=== PATIENT | female | born 2000 | race Caucasian/White ===

== ENCOUNTER 2022-07-09 08:11 | Emergency (ER) | payer BC, SELFPAY ==
[2022-07-09 08:29] VITALS: BP 140/90; PULSE 120; TEMP 36.8; O2SAT 97; BMI 35.9
--- NOTE | 2022-07-09 09:35 | ED.BACK ---
HPI - Back Pain/Injury General Chief Complaint: Back Injury/Pain Stated Complaint: Low back pain Time Seen by Provider: 07/09/22 08:44 History of Present Illness HPI Narrative: This 21-year-old female comes in with low back pain radiating down her whole left leg. She states that she had back pain like this about 3 years ago that resolved after about 6 months. Symptoms recurred again about a year ago during which time over this past year she was seeing a chiropractor. She had x-rays done a couple months ago and was given a steroid course and a muscle relaxant. Her symptoms improved while she was on these medicines. She states that her pain worsened significantly since last night. She states that she needed help getting her clothes on today. She does not report any saddle anesthesia or altered bowel or bladder function. Related Data Home Medications Medication Instructions Recorded Confirmed cyclobenzaprine 10 mg tablet mg 07/09/22 Previous Rx's Medication Instructions Recorded cyclobenzaprine 10 mg tablet 10 mg PO TID #15 tabs 07/09/22 hydrocodone 5 mg-acetaminophen 325 1 tab PO Q4-6H PRN pain #20 tabs 07/09/22 mg tablet ketorolac 10 mg tablet 10 mg PO Q8H 5 days #15 tabs 07/09/22 methylprednisolone 4 mg tablets in See Rx Instructions PO .COMPLEX 07/09/22 a dose pack (Medrol (Shane)) #21 ea Allergies Allergy/AdvReac Type Severity Reaction Status Date / Time No Known Drug Allergies Allergy Verified 07/09/22 08:31 Review of Systems Status of ROS: Reports: 10 or more systems reviewed and unremarkable except as noted in History and below Narrative: Constitutional: No fevers, no weight gain or loss. Eyes: No discharge. No vision changes. HENT: No congestion, no sore throat, no ear pain. Cardiovascular: No chest pain, no palpitations. Respiratory: No shortness of breath, no wheezes, no cough. Gastrointestinal: No abdominal pain, no vomiting, no diarrhea. Genitourinary: No dysuria, no hematuria. Musculoskeletal: Low back pain radiating down the left leg. Skin: No rashes, no pruritis. Neurological: No dizziness, weakness, sensory change, speech change. Endo/Heme/Allergies: No bruising or bleeding. No polydipsia. Pysch: no suicidality, no anxiety, no insomnia. All other systems reviewed and are negative. Exam Narrative: Exam Narrative: Constitutional: Well-developed, well-nourished, no acute distress. HEENT: Normocephalic, atraumatic. Neck: Normal range of motion. Nontender. Supple. Heart: Intact distal pulses. Lungs: No chest discomfort. No wheezes, rhonchi, or rales. Abdomen: Nontender. Back: Normal range of motion. Extremities: Low back pain radiating down the left leg. I did not attempt to do a straight leg raise as this would worsen her symptoms most likely. Skin: Intact. No rash. Warm. No erythema or pallor. Neurologic: No altered sensation. No weakness. Alert and oriented. Psychiatric: No suicidality. No anxiety or depression. No insomnia. Nursing notes and vitals signs are reviewed. Const: Vital Signs, click to edit/add: Vital Signs - 24 hr 07/09/22 08:29 Temperature 98.3 F Pulse Rate [Pulse Oximeter] 120 H Blood Pressure [Ri ght Upper Arm] 140/90 H Pulse Oximetry 97 Oxygen Delivery Me thod Room Air Course Vital Signs Vital signs: Initial Vital Signs Temperature 98.3 F 07/09/22 08:29 Temperature Source Temporal Artery Scan 07/09/22 08:29 Pulse Rate 120 H 07/09/22 08:29 Blood Pressure 140/90 H 07/09/22 08:29 Blood Pressure Mean 106 07/09/22 08:29 Blood Pressure Position Sitting 07/09/22 08:29 Pulse Oximetry 97 07/09/22 08:29 Oxygen Delivery Method 07/09/22 08:29 Vital Signs Temperature 98.3 F 07/09/22 08:29 Pulse Rate 120 H 07/09/22 08:29 Blood Pressure 140/90 H 07/09/22 08:29 Pulse Oximetry 97 07/09/22 08:29 Oxygen Delivery Method 07/09/22 08:29 Temperature 98.3 F 07/09/22 08:29 Pulse Rate 120 H 07/09/22 08:29 Blood Pressure 140/90 H 07/09/22 08:29 Pulse Oximetry 97 07/09/22 08:29 Oxygen Delivery Method 07/09/22 08:29 MDM - Back Pain/Injury MDM Narrative Medical decision making narrative: This patient comes in with worsening low back pain that is likely due to a lumbar radiculopathy. She did not have any recent injury event or strenuous activity that would mandate imaging at this time. I advised her to follow-up with the spine clinic where she may need an MRI and could be a candidate for some therapeutic injections. For now she received prescriptions for Medrol Dosepak, Toradol, [place], and Flexeril. She understands that we will not refill the narcotic out of the emergency department. Discharge Plan Discharge Clinical Impression: Lumbar radiculopathy Patient Disposition: Home w/ Parent or Adult Condition: Unchanged Additional Instructions: Take medication as needed and indicated. Follow up with primary physician and consider a clinic appointment with the spine clinic. Call [phone] for appointment. Return if worsening. Prescriptions: New cyclobenzaprine 10 mg tablet 10 mg PO TID Qty: 15 0RF hydrocodone-acetaminophen 5-325 mg tablet 1 tab PO Q4-6H PRN (Reason: pain) Qty: 20 0RF ketorolac 10 mg tablet 10 mg PO Q8H 5 Days Qty: 15 0RF methylprednisolone [Medrol (Shane)] 4 mg tablets,dose pack See Rx Instructions .ROUTE .COMPLEX Qty: 21 0RF Rx Instructions: orally per package directions No Action cyclobenzaprine 10 mg tablet Label Comments: Take 0.5 - 1 tablet by mouth at bedtime if needed for Muscle Spasm. Follow Up/Referrals: Willow Mc PA-C [Primary Care Provider] - Stand Alone Forms: [facility] Info Instructions
[2022-07-09 09:57] VITALS: BP 134/85; PULSE 84; O2SAT 97
== END 2022-07-09 09:58 | disposition home or self-care (01) ==
PROVIDERS: Emergency Provider Emergency Medicine Emergency Medical Services; PCP Physician Assistant Medical
DX: M54.16 Radiculopathy, lumbar region (principal)
CPT/HCPCS: 99283; 99284

== ENCOUNTER 2024-11-19 10:06 | Emergency (ER) | payer OTHER, SELFPAY ==
[2024-11-19 10:11] VITALS: BP 133/84; PULSE 101; RESP 18; TEMP 35.9; O2SAT 96; BMI 42.8
--- OUTSIDE RECORDS SUMMARY | 2024-11-19 10:17 | XMS_ITS | Clinical Summary ---
Author Organization [facility] Address [address] [place] [id number] Care Team Providers Care Patient Services Technician Name Role Phone Milagro Marroquin Primary Care Provider [phone] Allergies No known active allergies Medications ketoconazole 2% shampoo (NIZORAL) 2 % shampoo use as body wash 3 times a week 2 Active fluticasone propion-salmeter oL (ADVAIR) 250-50 mcg/Dose diskus inhalerIndicatio ns:Moderate persistent asthma without complication (HC) Inhale 1 Puff by mouth every 12 hours. 180 Each 3 4 Active albuterol HFA (PRO-AIR; VENTOLIN; PROVENTIL) 90 mcg/actuation inhalerIndicatio ns:Moderate persistent asthma without complication (HC) Inhale 2 Puffs by mouth every 4 hours if needed for Shortness Of Breath or Wheezing. 8.5 g 5 4 Active betamethasone, augmented dipropionate 0.05 % lotion Apply 2 times per day to scalp areas for 2-3 weeks then TWICE DAILY NEEDED.* 4 Active ARIPiprazole (Abilify) 5 mg tabletIndication s:Severe episode of recurrent major depressive disorder, without psychotic features (HC),Borderline personality disorder (HC),Trauma and stressor-related disorder Take 1 Tablet (5 mg) by mouth once daily. 30 Tablet 1 5 Active citalopram 40 mg tabletIndication s:Severe episode of recurrent major depressive disorder, without psychotic features (HC),VIC (generalized anxiety disorder) Take 1 Tablet (40 mg) by mouth once daily in the morning. 90 Tablet 5 Active hydrOXYzine HCL 50 mg tabletIndication s:Severe episode of recurrent major depressive disorder, without psychotic features (HC),VIC (generalized anxiety disorder) Take one tablet (50 mg) by mouth at bedtime as needed for anxiety/sleep 90 Tablet 5 Active hydrOXYzine HCL 50 mg tabletIndication s:VIC (generalized anxiety disorder),Severe episode of recurrent major depressive disorder, without psychotic features (HC) Take 1 Tablet (50 mg) by mouth at bedtime if needed for Anxiety (sleep). 30 Tablet 1 5 10/24/19 25 Discontin ued(Reord er (E-cancel not sent)) citalopram 40 mg tabletIndication s:VIC (generalized anxiety disorder),Severe episode of recurrent major depressive disorder, without psychotic features (HC) Take 1 Tablet (40 mg) by mouth once daily in the morning. 30 Tablet 1 5 10/24/19 25 Discontin ued(Reord er (E-cancel not sent)) Active Problems Problem Noted Date Diagnosed Date Borderline personality disorder 08/28/2024 Trauma and stressor-related disorder 08/28/2024 Obsessive-compulsive disorder 08/28/2024 Sleep disturbance 08/28/2024 Eating disorder 08/28/2024 VIC (generalized anxiety disorder) 01/07/2024 Severe episode of recurrent major depressive disorder, without psychotic features 05/13/2019 Plantar wart 08/01/2018 Asthma 02/10/2013 Resolved Problems Problem Noted Date Diagnosed Date Resolved Date Severe episode of recurrent major depressive disorder, without psychotic features 03/19/2019 Anxiety and depression 01/16/201903/28 Encounters Date Type Department Care Team Description 11/19/2024 Nurse Triage [facility] [address] [place] [facility] [address] Milagro Marroquin PA Suicidal Ideation 11/16/2024 Travel 10/22/2024 10:15 AM CDT Office Visit [facility] [address] [place] [address] Zeinab Pleitez, DEONDRE Follow Up; Medication Management (higher usage of THC) 10/22/2024 Travel 09/24/2024 10:15 AM CDT Office Visit [facility] [address] [place] [facility] [place] [address] Zeinab Pleitez, DEONDRE Follow Up; Medication Management 09/24/2024 Travel 08/27/2024 12:45 PM CDT Office Visit [facility] [address] [facility] [place] [address] Zeinab Pleitez, DEONDRE Medication Management 08/27/2024 Travel from Last 3 Months Immunizations Immunization Administration Dates Next Due HPV 9 (Gardasil 9) 06/08/2021,12/20/2016 Influenza, IIV3 (Age >=3 years) 04/20/20 08,05/09/2007,03/29/2006,03/10 MENINGOCOCCAL VACCINE 2 VIAL [id number] (MENVEO) 06/08/2021 Family History Medical History Relation Name Comments Good Health Father Thyroid Disease Mother Relation Name Status Comments Father Mother Social History Tobacco Use Types Packs/Day Years Used Date Smoking Tobacco: Every Day Cigarettes Smokeless Tobacco: Never Tobacco Cessation:Ready to Q uit: No; Counseling Given: Yes Alcohol Use Standard Drinks/Week Comments Yes 0 (1 standard drink = 0.6 oz pur e alcohol) PHQ-2 Answer Date Recorded PHQ-2 TOTAL SCORE 6 10/22/2024 Social Connections Answer Date Recorded Do you often feel lonely or isolated from those around you? 0 01/07/2024 Financial Resource Strain Answer Date R ecorded Difficulty of Paying Living Expenses 3 01/07/2024 Difficulty of Paying Living Expenses Not on file 01/07/2024 Food Insecurity Answer Date Recorded Do you worry your food will run out before you are able to buy more? 1 01/07/2024 Transportation Needs Answer Date Record ed Does lack of transportation keep you from medica l appointments? 1 01/07/2024 Does lack of transportation keep you from work, meetings or getting things that you need? 1 01/07/2024 Housing Stability Answer Date Recorded What is your housing situation today? 1 01/07/2024 Utilities Answer Date Recorded Do you have trouble paying f or utilities (for example, heat, electricity, water, phone)? 1 01/07/2024 Comments No Sex and Gender Information Value Date Recorded Sex Assigned at Not on file Legal Sex Female 8:56 AM CDT Gender Identity Not on file Sexual Orientation Not on file Obstetrics History Last Filed Vital Signs Vital Sign Reading Time Taken Comments Blood Pressure 131/78 10/22/2024 10:11 AM CDT Pulse 90 09/24/2024 10:17 AM CDT Temperature 36.8 C (98.2 F) 08/13/2023 3:28 PM CDT Respiratory Rate 20 05/18/2021 11:05 AM TOUR ACTOR Oxygen Saturation 97% 08/13/2024 8:27 AM CDT Inhaled Oxygen Concentration - - Weight 134.3 kg (296 lb) 10/22/2024 10:11 AM CDT Height 176.2 cm (5' 9.37) 01/07/2024 7:59 AM CD T Body Mass Index 43.25 01/07/2024 7:59 AM CDT Plan of Treatment Upcoming Encounters Date Type Department Care Team (Late st Contact Info) Description 11/20/2024 7:00 AM CDT Office Visit [facility] [address] [place] [address] Milagro Marroquin PA [address] [place] [address] Health Maintenance Due Date Last Done Comments Tdap 2013 Hepatitis C screening for ag e 18-79 2020 Hepatitis B series for 19+ ( 1 of 3 - 19+ 3-dose series) 2021 Pneumococcal series for age 6-49 (1 of 2 - PCV) 2021 Tetanus booster 2022 Pap test for age 21-65 12/10/2023 COVID-19 vaccine series ( - season) 2024 BMI (ht and wt on same day) for age 18+ 01/06/2025 01/07/2024, 01/17/2023, 06/08/2021 Influenza Vaccine (Season Ended) 2025 04/20/2008, 05/09/2007, 03/29/2006, Additional history exists Chlamydia for age 16-24 08/13/2025 08/14/19 25, 06/08/2021, 07/19/2020 Depression screening for age 12+ 10/22/2025 10/22/2024, 09/24/2024, 08/27/2024, Additional history exists HPV series for age 9-26 Completed 06/08/2021, 12/20 Meningococcal series for age 11-21 Completed 2021 HIV for age 15-65 Completed 08/13/2024 Procedures Procedure Name Priority Date/Time Associated Diagnosis Comments BASIC METABOLIC PANEL Routine 09/24/2024 11:10 AM CDT High risk medication use HEMOGLOBIN A1C Routine 09/24/2024 11:10 AM CDT High risk medication use TSH WITH REFLEX Routine 09/24/2024 11:10 AM CDT High risk medication use LIPID PANEL W REFLEX MEASURED LDL Routine 09/24/2024 11:10 AM CDT High risk medication use ANTI HIV 1/2 Routine 08/13/2024 8:59 AM CDT Routine screening for STI (sexually transmitted infection) GC CHLAMYDIA TRACH PROBE Routine 08/13/2024 8:53 AM CDT Routine screening for STI (sexually transmitted infection) from Last 3 Months or Most Recently Relevant to Health Maintenance Results * HEMOGLOBIN A1C (09/24/2024 11:10 AM CDT) HEMOGLOBIN A1C 5.5 <5.7 % [facility] Comment: For the purpose of screening for the presence of diabetes: <5.7% Consistent with the absence of diabetes 5.7-6.4% Consistent with increased risk for diabetes (prediabetes) > or =6.5% Consistent with diabetes This assay result is consistent with a decreased risk of diabetes. Currently, no consensus exists regarding use of hemoglobin A1c for diagnosis of diabetes in children. According to [place] Diabetes Association (ADA) guidelines, hemoglobin A1c <7.0% represents optimal control in non- diabetic patients. Different metrics may apply to specific patient populations. Standards of Medical Care in Diabetes(ADA). Blood BLOOD SPECIMEN / Unknown 09/24/2024 11:10 AM CDT 09/24/2024 11:10 AM CDT Zeinab Pleietz NP CHEMISTRY Final Resul t Performing Organization Address [facility] Co de Phone Number [facility] [address] [place] [address], [facility] [address] [place] [address] * TSH WITH REFLEX (09/24/2024 11:10 AM CDT) TSH W/REFLEX TO FT4 0.52 mIU/L [facility] Comment: Reference Range > or = 20 Years 0.40-4.50 Ranges First trimester 0.26-2.66 Second trimester 0.55-2.73 Third trimester 0.43-2.91 Blood BLOOD SPECIMEN / Unknown 09/24/2024 11:10 AM CDT 09/24/2024 11:10 AM CDT Zeinab Pleitez NP CHEMISTRY Final Resul t Performing Organization Address [facility] de Phone Number [facility] [address] [place] [phone], [facility] [address] [place] [address] * LIPID PANEL W REFLEX MEASURED LDL (09/24/2024 11:10 AM CDT) CHOLESTEROL, TOTAL 161 <200 mg/dL [facility] HDL CHOLESTEROL 50 > OR = 50 mg/dL [facility] TRIGLYCERIDES 95 <150 mg/dL [facility] LDL-CHOLESTEROL 92 mg/dL (calc) [facility] Comment: Reference range: <100 Desirable range <100 mg/dL for primary prevention; <70 mg/dL for patients with CHD or diabetic patients with > or = 2 CHD risk factors. LDL-C is now calculated using the Renetta calculation, which is a validated novel method providing better accuracy than the Friedewald equation in the estimation of LDL-C. Avila GONZALEZ et al. MOON. 2013;310(39): 5221-5947 (http://education.Appscend/faq/FRP878) CHOL/HDLC RATIO 3.2 <5.0 (calc) [facility] NON HDL CHOLESTEROL 111 <130 mg/dL (calc) [facility] Comment: For patients with diabetes plus 1 major ASCVD risk factor, treating to a non-HDL-C goal of <100 mg/dL (LDL-C of <70 mg/dL) is considered a therapeutic option. Blood BLOOD SPECIMEN / Unknown 09/24/2024 11:10 AM CDT 09/24/2024 11:10 AM CDT Zeinab Pleitez SLIP INJECTOR AND APPLICATOR CHEMISTRY Final Resul t [facility] [address] [place] [address], [facility] [address] * (ABNORMAL) BASIC METABOLIC PANEL (09/24/2024 11:10 AM CDT) GLUCOSE 100(H) 65 - 99 mg/dL [facility] Comment: Fasting reference interval For someone without known diabetes, a glucose value between 100 and 125 mg/dL is consistent with prediabetes and should be confirmed with a follow-up test. UREA NITROGEN (BUN) 12 7 - 25 mg/dL [facility] CREATININE 0.71 0.50 - 0.96 mg/dL [facility] EGFR 124 > OR = 60 mL/min/1. 73m2 [facility] BUN/CREATININE RATIO SEE NOTE: 6 - 22 (calc) [facility] Comment: Not Reported: BUN and Creatinine are within reference range. SODIUM 139 135 - 146 mmol/L [facility] POTASSIUM 4.1 3.5 - 5.3 mmol/L [facility] CHLORIDE 105 98 - 110 mmol/L [facility] CARBON DIOXIDE 27 20 - 32 mmol/L [facility] ELECTROLYTE BALANCE 7 7 - 17 mmol/L (calc) [facility] CALCIUM 9.4 8.6 - 10.2 mg/dL [facility] Blood BLOOD SPECIMEN / Unknown 09/24/2024 11:10 AM CDT 09/24/2024 11:10 AM CDT us Zeinab Pleitez SLIP INJECTOR AND APPLICATOR CHEMISTRY Final Resul t [facility] [address] [place] [address], [facility] [address] [place] [address] * ANTI HIV 1/2 [97580.0] (08/13/2024 8:59 AM CDT) HIV AG/AB, 4TH GEN NON-REACT PATTI NON-REACT PATTI [facility] Comment: HIV-1 antigen and HIV-1/HIV-2 antibodies were not detected. There is no laboratory evidence of HIV infection. PLEASE NOTE: This information has been disclosed to you from records whose confidentiality may be protected by state law. If your state requires such protection, then the state law prohibits you from making any further disclosure of the information without the specific written consent of the person to whom it pertains, or as otherwise permitted by law. A general authorization for the release of medical or other information is NOT sufficient for this purpose. For additional information please refer to http://education.Citydeal.de/faq/PEA057 (This link is being provided for informational/ educational purposes only.) The performance of this assay has not been clinically validated in patients less than 2 years old. Blood BLOOD SPECIMEN / Unknown 08/13/2024 8:59 AM CDT 08/13/2024 8:59 AM CDT Mckayla Lackey MD SEND OUTS Final Resul t Performing Organization Address [facility] Co de Phone Number [facility] [address] [place] [address], [facility] [address] [place] [address] * GC Chlamydia [[id number]] - Vaginal (08/13/2024 8:53 AM CDT) CHLAMYDIA PROBE Negative 5:23 PM CDT [facility] N GONORRHOEAE PROBE Negative 08/13/2024 5:23 PM CDT [facility] Other VAGINAL SWAB / Unknown Non-Blood / Unknown 08/13/2024 8:53 AM CDT 08/13/2024 9:06 AM CDT Mckayla Lackey MD MICROBIOLOGY Final Resul t Performing Organization Address [facility] Co de Phone Number [facility] [address] [place] [address], from Last 3 Months or Most Recently Relevant to Health Maintenance Insurance [facility] [employer] [facility] Care Teams Patient Services Technician Relationship Specialty Start Date End Date Milagro Marroquin PA [address] [place] [address] PCP - General Physician Director Of Medical Review 10/31/22
--- NOTE | 2024-11-19 10:59 | ED_ITS ---
HPI - General Adult General Date Seen: 11/19/24 Chief complaint: Psychiatric Problem/Disorder Stated complaint: Suicide thoughts Time Seen by Provider: 11/19/24 10:59 History of Present Illness HPI narrative: 23 yo F presenting to the ER today with concern for suicidal thoughts. She has had suicidal thoughts for ?a long time. ?. She has been struggling with mental health getting worse for the past year. She attributes part of her mental health because she is grieving the end of her relationship with her ex- boyfriend. They broke up last year and he moved out in May. In her mind she notes that that relationship bending is a good thing but in her arch she still misses agrees for. She feels depressed and hopeless and has had thoughts of suicide off and on for quite some time. She already has a psychiatrist, through the [facility] and is on meds. She has been taking her meds for the past 4-5 months since she started seeing her psychiatrist in feels like she does have some temporary improvements when they started new med or increase her dose but on the whole she is feels generally hopeless and depressed. 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 This means that they were performing activities at work that were beyond their approved scope of practice. This was very upsetting for her. She was more depressed and hopeless on Sunday. She was drinking some alcohol and then Sunday evening she took about 30 tablets of 25 mg hydroxyzine as a suicide attempt. She took them hoping that she would go to sleep and not wake up. She says she vomited about 1/2 hour of taking the hydroxyzine. After that she fell asleep and when she woke up Sunday morning she said she was feeling basically fine. Still very depressed and hopeless but no other dizziness, nausea, headache, dry mouth, and no seizures. She continued to feel hopeless and finally told her mother about the suicide attempt today. She asked her mother to bring her here to the ER. She is not really sure what she wants but she thinks that probably she thinks she needs s inpatient care. She has no previous suicide attempt to overdose other than once last year she had cut her wrists. She does have a history of frequent superficial cutting for several years. She has been cutting more lately. Last time she cut was on Sunday. When I evaluate her cuts I note that most of them are perpendicular to the axis of her forearm but the cut she inflicted on herself on Sunday are parallel to the access. When I ask her why she change directions she says she was hoping she would cut her radial artery and bleed to . \ She has a therapist at [facility] in [place]. She is currently on citalopram and hydroxyzine and another medication. She cannot recall the name but it is a antipsychotic. She has been increasingly suicidal despite seeing her therapist and now has plans to overdose on a bunch of pills. She did attempt suicide 2 days ago on Sunday but did not come to the doctor. Related Data Home Medications ?Medication ?Instructions ?Recorded ?Confirmed albuterol sulfate 90 mcg/actuation 2 puff inhalation Q 4H PRN wheezing 11/19/24 11/19/24 aerosol inhaler aripiprazole 5 mg tablet 5 mg PO DAILY 11/19/2411/19 citalopram 40 mg tablet 40 mg PO QAM 11/19/24 fluticasone 250 mcg-salmeterol 50 1 ea inhalation Q12H 11/19/24 11/19/24 mcg/dose blistr powdr for inhalation (Advair Diskus) hydroxyzine HCl 50 mg tablet 50 mg PO QPM PRN insomnia 11/19/24 11/19/24 Allergies Allergy/AdvReac Type Severity Reaction Status Date / Time No Known Drug Allergies Allergy Verified 07/09/22 08:31 [facility] Social History Smoking Status: Unknown if ever smoked Exam Narrative: Exam Narrative: Constitutional: Appears well-developed and well-nourished. Alert. Conversant. Mother at her side. At times the patient is tearful and upset but generally she is fairly calm him. She is very forthright. Non toxic. HENT: Head: Atraumatic. Nose: Nose normal. Mouth/Throat: Oral mucosa is clear and moist. no trismus. Pharynx normal. Eyes: Conjunctivae normal. EOM normal. Pupils equal, round, and reactive to light. No scleral icterus. Neck: Normal range of motion. Neck supple. No tracheal deviation present. Cardiovascular: Normal rate, regular rhythm. No gallop. No friction rub. No murmur heard. Symmetric radial artery pulses Pulmonary/Chest: Effort normal. No stridor. No respiratory distress. No wheezes. No rales. No rhonchi . No tenderness. Abdominal: Soft. No distension. No mass. No tenderness. No rebound. No guarding. Musculoskeletal: RUE: Normal range of motion. No tenderness. No deformity LUE: Normal range of motion. No tenderness. No deformity RLE: Normal range of motion. No edema. No tenderness. No deformity LLE: Normal range of motion. No edema. No tenderness. No deformity Neurological: Alert and oriented to person, place, and time. Normal strength. CN II-VII intact. No sensory deficit. GCS eye subscore is 4. GCS verbal subscore is 5. GCS motor subscore is 6. Normal coordination Skin: Skin is warm and dry. No rash noted. No pallor. Normal capillary refill. Psychiatric: See HPI. At times tearful. Sources hopelessness and thoughts of suicide for a long time. Sounds like a lot of this stems from pre-existing depression, is worsened by grief after the end of her relationship with her ex- boyfriend. Also worsened lately because of work stress. She had a suicide attempt by overdose on hydroxyzine on Sunday but sounds like she vomited most of the pills she had swallow. She was drinking alcohol on Sunday but does not regularly drink alcohol. Denies other drugs. Also has a history of frequent superficial cutting. She did make more cut some Sunday night and but change the direction of the cut from being perpendicular to the axis of the radius 2 parallel to it. She knew that cutting parallel to the radius carried a higher risk of life-threatening radial artery injury (however the cuts are actually on the ulnar side of the tendons, not directly over the radial artery). She would be open do inpatient hospitalization. She is not sure what she wants. Const: Vital Signs, click to edit/add: Vital Signs - 24 hr 11/19/24 10:11 11/19/24 15:37 11/19/24 16:39 Temperature 96.7 F L 98.4 F Pulse Rate [Pulse Oximeter] 101 H 100 100 Respiratory Rate 18 20 20 Blood Pressure [Ri ght Upper Arm] 133/84 140/83 H 147/84 H Pulse Oximetry 96 97 97 Oxygen Delivery Me thod Room Air Room Air Room Air Course Vital Signs Vital signs: Initial Vital Signs Temperature 96.7 F L 11/19/24 10:11 Temperature Source Temporal Artery Scan 11/19/24 10:11 Pulse Rate 101 H 11/19/24 10:11 Respiratory Rate 18 11/19/24 10:11 Blood Pressure 133/84 11/19/24 10:11 Blood Pressure Mean 100 11/19/24 10:11 Blood Pressure Position Sitting 11/19/24 10:11 Pulse Oximetry 96 11/19/24 10:11 Oxygen Delivery Method Room Air 11/19/24 10:11 Vital Signs Temperature 96.7 F L 11/19/24 10:11 Pulse Rate 101 H 11/19/24 10:11 Respiratory Rate 18 11/19/24 10:11 Blood Pressure 133/84 11/19/24 10:11 Pulse Oximetry 96 11/19/24 10:11 Oxygen Delivery Method Room Air 11/19/24 10:11 Temperature 98.4 F 11/19/24 16:39 Pulse Rate 100 11/19/24 16:39 Respiratory Rate 20 11/19/24 16:39 Blood Pressure 147/84 H 11/19/24 16:39 Pulse Oximetry 97 11/19/24 16:39 Oxygen Delivery Method Room Air 11/19/24 16:39 Medical Decision Making MDM Narrative Medical decision making narrative: This is a very pleasant 23-year-old female accompanied to the ER today but per mother. She is voluntarily seeking care because she has had a history of depression and hopelessness will long-term suicidal thoughts with a recent uptake in the suicidal thoughts. She had a specific attempt to kill herself with overdose on pills 2 days ago and also has been cutting more frequently. Although her cuts are superficial, she has changed the axis of her cutting and is now tracking along the axis of radial artery, rather than across it. This presentation does create a high risk pattern for repeat suicide attempt and self-harm. I think the patient meets criteria for inpatient mental health care. Although she would be holdable, she is voluntarily seeking care so she is not on a 72 hour hold. The laboratory workup shows white count of 11 without any clear sign of infection. I suspect this is potentially related to mild dehydration could she has an lot a lot eat or drink. Urinalysis negative. She is not . Drug screen is positive for marijuana otherwise negative. Because she did have a pill ingestion 2 days ago we did check salicylate and acetaminophen levels and they are both undetectable. This would correlate with the patient's report of taking only an overdose of hydroxyzine. Since she is now about 36 hours out from the overdose and she has no symptoms of anticholinergic syndrome from the antihistamine. At this point, with reasonable clinical judgment after a thorough history and physical and laboratory evaluation here in the ER, she is medically clear for psychiatric evaluation and inpatient mental health placement. [facility] agree that she meets inpatient criteria and would be holdable. Patient was accepted for inpatient mental health care at [facility]. I did put her on a temporary transport hold for EMS transport [facility]. Lab Data Labs: Lab Results 11/19/24 11/19/24 11/19/24 Range/Units 10:53 10:53 10:53 WBC (4.50-11.00) K/uL RBC (4.00-5.20) m/uL Hgb (12.0-16.0) gm/dL Hct (33.0-51.0) % MCV (80-100) fL MCH (26-34) pg MCHC (32-36) gm/dL RDW Coeff of Ruby (11.5-15.5) % Plt Count (140-440) K/uL Neut % (Auto) (42.0-72.0) % Lymph % (Auto) (20-44) % Dickenson % (Auto) (0.0-11.0) % Eos % (Auto) (0.0-7.0) % Baso % (Auto) (0.0-3.0) % Neut # (Auto) (1.7-7.0) K/uL Lymph # (Auto) (0.90-2.90) K/uL Dickenson # (Auto) (0.00-0.90) K/UL Eos # (Auto) (0.00-0.50) K/uL Baso # (Auto) (0.00-0.30) K/uL Abs Immat Gran (auto) (0.00-0.30) K/uL Imm/Tot Granulo (auto) % Sodium (135-149) mmol/L Potassium (3.6-5.1) mmol/L Chloride (96-114) mmol/L Carbon Dioxide (20-32) mmol/L Anion Gap (7-15) mEq/L BUN (5-24) mg/dL Creatinine (0.5-1.5) mg/dL Estimated Creat Clear Estimated GFR ml/min Glucose (60-115) mg/dL Calcium (8.4-10.6) mg/dL Total Bilirubin (0.1-1.5) mg/dL AST (12-35) U/L ALT (4-35) U/L Alkaline Phosphatase (40-150) U/L Total Protein (6.0-8.3) g/dL Albumin (3.3-5.0) g/dL TSH (0.270-4.200) uIU/mL Urine Color Yellow (Yellow) Urine Appearance Clear (Clear) Urine pH 6.5 (5.0-8.5) Ur Specific [place] 1.025 (1.000-1.030) Urine Protein Negative (Negative) Urine Glucose (UA) Negative (Negative) Urine Ketones Negative (Negative) Urine Blood Trace-intact A (Negative) Urine Nitrite Negative (Negative) Urine Bilirubin Negative (Negative) Urine Urobilinogen 1.0 (0.2-1.0) Ur Leukocyte Esterase 1+ A (Negative) Urine RBC 0-2 (0-2) Urine WBC 2-5 (0-5) Ur Squamous Epith Cells Many A (None-Few) Amorphous Sediment Many A (None) Urine Bacteria Moderate A (None) Urine HCG, Qual Negative (Negative) Salicylates (1.0-10) mg/dL Urine Opiates Screen Cancelled Negative Ur Buprenorphine Scrn Cancelled Ur Oxycodone Screen Cancelled Negative Urine Methadone Screen Cancelled Acetaminophen (10.0-30.0) ug/mL Ur Barbiturates Screen U Tricyclic Antidepress Ur Phencyclidine Scrn Ur Amphetamines Screen U Methamphetamines Scrn U Benzodiazepines Scrn Urine Cocaine Screen U Marijuana (THC) Screen Ur Drug Screen Comment Ethyl Alcohol (0.01-0.03) % SARS-CoV-2 Ag (Rapid) (Negative) 11/19/24 11/19/24 11/19/24 Range/Units 10:53 10:53 10:53 WBC (4.50-11.00) K/uL RBC (4.00-5.20) m/uL Hgb (12.0-16.0) gm/dL Hct (33.0-51.0) % MCV (80-100) fL MCH (26-34) pg MCHC (32-36) gm/dL RDW Coeff of Ruby (11.5-15.5) % Plt Count (140-440) K/uL Neut % (Auto) (42.0-72.0) % Lymph % (Auto) (20-44) % Dickenson % (Auto) (0.0-11.0) % Eos % (Auto) (0.0-7.0) % Baso % (Auto) (0.0-3.0) % Neut # (Auto) (1.7-7.0) K/uL Lymph # (Auto) (0.90-2.90) K/uL Dickenson # (Auto) (0.00-0.90) K/UL Eos # (Auto) (0.00-0.50) K/uL Baso # (Auto) (0.00-0.30) K/uL Abs Immat Gran (auto) (0.00-0.30) K/uL Imm/Tot Granulo (auto) % Sodium (135-149) mmol/L Potassium (3.6-5.1) mmol/L Chloride (96-114) mmol/L Carbon Dioxide (20-32) mmol/L Anion Gap (7-15) mEq/L BUN (5-24) mg/dL Creatinine (0.5-1.5) mg/dL Estimated Creat Clear Estimated GFR ml/min Glucose (60-115) mg/dL Calcium (8.4-10.6) mg/dL Total Bilirubin (0.1-1.5) mg/dL AST (12-35) U/L ALT (4-35) U/L Alkaline Phosphatase (40-150) U/L Total Protein (6.0-8.3) g/dL Albumin (3.3-5.0) g/dL TSH (0.270-4.200) uIU/mL Urine Color (Yellow) Urine Appearance (Clear) Urine pH (5.0-8.5) Ur Specific [place] (1.000-1.030) Urine Protein (Negative) Urine Glucose (UA) (Negative) Urine Ketones (Negative) Urine Blood (Negative) Urine Nitrite (Negative) Urine Bilirubin (Negative) Urine Urobilinogen (0.2-1.0) Ur Leukocyte Esterase (Negative) Urine RBC (0-2) Urine WBC (0-5) Ur Squamous Epith Cells (None-Few) Amorphous Sediment (None) Urine Bacteria (None) Urine HCG, Qual (Negative) Salicylates (1.0-10) mg/dL Urine Opiates Screen Ur Buprenorphine Scrn Ur Oxycodone Screen Urine Methadone Screen Negative Acetaminophen (10.0-30.0) ug/mL Ur Barbiturates Screen Cancelled Negative U Tricyclic Antidepress Cancelled Negative Ur Phencyclidine Scrn Cancelled Ur Amphetamines Screen U Methamphetamines Scrn U Benzodiazepines Scrn Urine Cocaine Screen U Marijuana (THC) Screen Ur Drug Screen Comment Ethyl Alcohol (0.01-0.03) % SARS-CoV-2 Ag (Rapid) (Negative) 11/19/24 11/19/24 11/19/24 Range/Units 10:53 10:53 10:53 WBC (4.50-11.00) K/uL RBC (4.00-5.20) m/uL Hgb (12.0-16.0) gm/dL Hct (33.0-51.0) % MCV (80-100) fL MCH (26-34) pg MCHC (32-36) gm/dL RDW Coeff of Ruby (11.5-15.5) % Plt Count (140-440) K/uL Neut % (Auto) (42.0-72.0) % Lymph % (Auto) (20-44) % Dickenson % (Auto) (0.0-11.0) % Eos % (Auto) (0.0-7.0) % Baso % (Auto) (0.0-3.0) % Neut # (Auto) (1.7-7.0) K/uL Lymph # (Auto) (0.90-2.90) K/uL Dickenson # (Auto) (0.00-0.90) K/UL Eos # (Auto) (0.00-0.50) K/uL Baso # (Auto) (0.00-0.30) K/uL Abs Immat Gran (auto) (0.00-0.30) K/uL Imm/Tot Granulo (auto) % Sodium (135-149) mmol/L Potassium (3.6-5.1) mmol/L Chloride (96-114) mmol/L Carbon Dioxide (20-32) mmol/L Anion Gap (7-15) mEq/L BUN (5-24) mg/dL Creatinine (0.5-1.5) mg/dL Estimated Creat Clear Estimated GFR ml/min Glucose (60-115) mg/dL Calcium (8.4-10.6) mg/dL Total Bilirubin (0.1-1.5) mg/dL AST (12-35) U/L ALT (4-35) U/L Alkaline Phosphatase (40-150) U/L Total Protein (6.0-8.3) g/dL Albumin (3.3-5.0) g/dL TSH (0.270-4.200) uIU/mL Urine Color (Yellow) Urine Appearance (Clear) Urine pH (5.0-8.5) Ur Specific [place] (1.000-1.030) Urine Protein (Negative) Urine Glucose (UA) (Negative) Urine Ketones (Negative) Urine Blood (Negative) Urine Nitrite (Negative) Urine Bilirubin (Negative) Urine Urobilinogen (0.2-1.0) Ur Leukocyte Esterase (Negative) Urine RBC (0-2) Urine WBC (0-5) Ur Squamous Epith Cells (None-Few) Amorphous Sediment (None) Urine Bacteria (None) Urine HCG, Qual (Negative) Salicylates (1.0-10) mg/dL Urine Opiates Screen Ur Buprenorphine Scrn Ur Oxycodone Screen Urine Methadone Screen Acetaminophen (10.0-30.0) ug/mL Ur Barbiturates Screen U Tricyclic Antidepress Ur Phencyclidine Scrn Negative Ur Amphetamines Screen Cancelled Negative U Methamphetamines Scrn Cancelled Negative U Benzodiazepines Scrn Cancelled Urine Cocaine Screen U Marijuana (THC) Screen Ur Drug Screen Comment Ethyl Alcohol (0.01-0.03) % SARS-CoV-2 Ag (Rapid) (Negative) 11/19/24 11/19/24 11/19/24 Range/Units 10:53 10:53 10:53 WBC (4.50-11.00) K/uL RBC (4.00-5.20) m/uL Hgb (12.0-16.0) gm/dL Hct (33.0-51.0) % MCV (80-100) fL MCH (26-34) pg MCHC (32-36) gm/dL RDW Coeff of Ruby (11.5-15.5) % Plt Count (140-440) K/uL Neut % (Auto) (42.0-72.0) % Lymph % (Auto) (20-44) % Dickenson % (Auto) (0.0-11.0) % Eos % (Auto) (0.0-7.0) % Baso % (Auto) (0.0-3.0) % Neut # (Auto) (1.7-7.0) K/uL Lymph # (Auto) (0.90-2.90) K/uL Dickenson # (Auto) (0.00-0.90) K/UL Eos # (Auto) (0.00-0.50) K/uL Baso # (Auto) (0.00-0.30) K/uL Abs Immat Gran (auto) (0.00-0.30) K/uL Imm/Tot Granulo (auto) % Sodium (135-149) mmol/L Potassium (3.6-5.1) mmol/L Chloride (96-114) mmol/L Carbon Dioxide (20-32) mmol/L Anion Gap (7-15) mEq/L BUN (5-24) mg/dL Creatinine (0.5-1.5) mg/dL Estimated Creat Clear Estimated GFR ml/min Glucose (60-115) mg/dL Calcium (8.4-10.6) mg/dL Total Bilirubin (0.1-1.5) mg/dL AST (12-35) U/L ALT (4-35) U/L Alkaline Phosphatase (40-150) U/L Total Protein (6.0-8.3) g/dL Albumin (3.3-5.0) g/dL TSH (0.270-4.200) uIU/mL Urine Color (Yellow) Urine Appearance (Clear) Urine pH (5.0-8.5) Ur Specific [place] (1.000-1.030) Urine Protein (Negative) Urine Glucose (UA) (Negative) Urine Ketones (Negative) Urine Blood (Negative) Urine Nitrite (Negative) Urine Bilirubin (Negative) Urine Urobilinogen (0.2-1.0) Ur Leukocyte Esterase (Negative) Urine RBC (0-2) Urine WBC (0-5) Ur Squamous Epith Cells (None-Few) Amorphous Sediment (None) Urine Bacteria (None) Urine HCG, Qual (Negative) Salicylates (1.0-10) mg/dL Urine Opiates Screen Ur Buprenorphine Scrn Ur Oxycodone Screen Urine Methadone Screen Acetaminophen (10.0-30.0) ug/mL Ur Barbiturates Screen U Tricyclic Antidepress Ur Phencyclidine Scrn Ur Amphetamines Screen U Methamphetamines Scrn U Benzodiazepines Scrn Negative Urine Cocaine Screen Cancelled Negative U Marijuana (THC) Screen Cancelled POSITIVE A Ur Drug Screen Comment Cancelled Ethyl Alcohol (0.01-0.03) % SARS-CoV-2 Ag (Rapid) (Negative) 11/19/24 11/19/24 11/19/24 Range/Units 10:53 11:49 12:16 WBC 11.85 H (4.50-11.00) K/uL RBC 4.50 (4.00-5.20) m/uL Hgb 12.0 (12.0-16.0) gm/dL Hct 37.1 (33.0-51.0) % MCV 82 (80-100) fL MCH 27 (26-34) pg MCHC 32 (32-36) gm/dL RDW Coeff of Ruby 14.2 (11.5-15.5) % Plt Count 381 (140-440) K/uL Neut % (Auto) 70.2 (42.0-72.0) % Lymph % (Auto) 21.3 (20-44) % Dickenson % (Auto) 5.3 (0.0-11.0) % Eos % (Auto) 2.8 (0.0-7.0) % Baso % (Auto) 0.3 (0.0-3.0) % Neut # (Auto) 8.30 H (1.7-7.0) K/uL Lymph # (Auto) 2.50 (0.90-2.90) K/uL Dickenson # (Auto) 0.60 (0.00-0.90) K/UL Eos # (Auto) 0.30 (0.00-0.50) K/uL Baso # (Auto) 0.00 (0.00-0.30) K/uL Abs Immat Gran (auto) 0.00 (0.00-0.30) K/uL Imm/Tot Granulo (auto) 0.1 % Sodium 137 (135-149) mmol/L Potassium 4.1 (3.6-5.1) mmol/L Chloride 105 (96-114) mmol/L Carbon Dioxide 23 (20-32) mmol/L Anion Gap 9 (7-15) mEq/L BUN 9 (5-24) mg/dL Creatinine 0.6 (0.5-1.5) mg/dL Estimated Creat Clear 160.39 Estimated GFR 131 ml/min Glucose 94 (60-115) mg/dL Calcium 9.4 (8.4-10.6) mg/dL Total Bilirubin 0.6 (0.1-1.5) mg/dL AST 24 (12-35) U/L ALT 24 (4-35) U/L Alkaline Phosphatase 79 (40-150) U/L Total Protein 8.0 (6.0-8.3) g/dL Albumin 3.9 (3.3-5.0) g/dL TSH 0.324 (0.270-4.200) uIU/mL Urine Color (Yellow) Urine Appearance (Clear) Urine pH (5.0-8.5) Ur Specific [place] (1.000-1.030) Urine Protein (Negative) Urine Glucose (UA) (Negative) Urine Ketones (Negative) Urine Blood (Negative) Urine Nitrite (Negative) Urine Bilirubin (Negative) Urine Urobilinogen (0.2-1.0) Ur Leukocyte Esterase (Negative) Urine RBC (0-2) Urine WBC (0-5) Ur Squamous Epith Cells (None-Few) Amorphous Sediment (None) Urine Bacteria (None) Urine HCG, Qual (Negative) Salicylates < 1.0 L (1.0-10) mg/dL Urine Opiates Screen Ur Buprenorphine Scrn Ur Oxycodone Screen Urine Methadone Screen Acetaminophen < 10.0 (10.0-30.0) ug/mL Ur Barbiturates Screen U Tricyclic Antidepress Ur Phencyclidine Scrn Ur Amphetamines Screen U Methamphetamines Scrn U Benzodiazepines Scrn Urine Cocaine Screen U Marijuana (THC) Screen Ur Drug Screen Comment See Note Ethyl Alcohol < 0.01 (0.01-0.03) % SARS-CoV-2 Ag (Rapid) Negative (Negative) Discharge Plan Discharge Clinical Impression: Depression with suicidal ideation Patient Disposition: Xfer Other Prescriptions: No Action fluticasone propion-salmeterol [Advair Diskus] 250-50 mcg/dose blister with device 1 ea INHALATION Q12H citalopram 40 mg tablet 40 mg PO QAM hydroxyzine HCl 50 mg tablet 50 mg PO QPM PRN (Reason: insomnia) albuterol sulfate 90 mcg/actuation HFA aerosol inhaler 2 puff INHALATION Q4H PRN (Reason: wheezing) aripiprazole 5 mg tablet 5 mg PO DAILY Stand Alone Forms: [facility] Info Instructions
[2024-11-19 11:03] LABS: Appearance Urine Clear (Clear); Bilirubin Urine Negative (Negative); Blood Urine Trace-intact (Negative); Color Urine Yellow (Yellow); Glucose Urine Negative (Negative); Ketones Urine Negative (Negative); Leukocyte Esterase Urine 1+ (Negative); Nitrite Urine Negative (Negative); Protein Urine Negative (Negative); Specific Gravity Urine 1.025 (1.000-1.030); pH Urine 6.5 (5.0-8.5)
[2024-11-19 11:19] LABS: Amorphous Sediment Urine Many; Bacteria Urine Moderate; RBC Urine 0-2 (0-2); Squamous Epithelial Cell Urine Many (None-Few)
[2024-11-19 11:59] LABS: Basophils Percent Auto 0.3 % (0.0-3.0); Eosinophils Percent Auto 2.8 % (0.0-7.0); Hematocrit 37.1 % (33.0-51.0); Immature Granulocytes Pct Auto 0.1 %; Lymphocytes Percent Auto 21.3 % (20-44); Mean Corpuscular HGB Conc 32 gm/dL (32-36); Mean Corpuscular Hemoglobin 27 pg (26-34); Mean Corpuscular Volume 82 fL (80-100); Monocytes Percent Auto 5.3 % (0.0-11.0); Neutrophils Percent Auto 70.2 % (42.0-72.0); Platelet Count* 381 K/uL (140-440); RDW Coefficient of Variation % 14.2 % (11.5-15.5); White Blood Count* 11.85 K/uL (4.50-11.00)
[2024-11-19 12:01] LABS: Slide Review Reflex No
[2024-11-19 12:25] LABS: Albumin* 3.9 g/dL (3.3-5.0); Chloride* 105 mmol/L (96-114); Potassium* 4.1 mmol/L (3.6-5.1); Sodium* 137 mmol/L (135-149)
[2024-11-19 12:27] LABS: Alanine Aminotransferase* 24 U/L (4-35); Anion Gap 9 mEq/L (7-15); Aspartate Amino Transferase* 24 U/L (12-35); Blood Urea Nitrogen* 9 mg/dL (5-24); Carbon Dioxide* 23 mmol/L (20-32); Creatinine* 0.6 mg/dL (0.5-1.5); Est. Creatinine Clearance* 160.39; Estimated Glomerular Filt Rate 131 ml/min
[2024-11-19 12:28] LABS: Alkaline Phosphatase* 79 U/L (40-150); Bilirubin Total* 0.6 mg/dL (0.1-1.5); Calcium* 9.4 mg/dL (8.4-10.6); Glucose* 94 mg/dL (60-115)
[2024-11-19 12:34] LABS: Acetaminophen* < 10.0 ug/mL (10.0-30.0)
[2024-11-19 12:35] LABS: Salicylate* < 1.0 mg/dL (1.0-10)
[2024-11-19 12:45] LABS: Ur HCG Qualitative* Negative (Negative)
[2024-11-19 12:49] LABS: SARS Antigen* Negative (Negative)
[2024-11-19 12:51] LABS: Amphetamine Screen Urine Negative (Negative); Barbiturate Screen Urine Negative (Negative); Benzodiazepines Screen Urine Negative (Negative); Cannabinoid Screen Urine POSITIVE (Negative); Cocaine Screen Urine Negative (Negative); Methadone Screen Urine Negative (Negative); Methamphetamines Screen Urine Negative (Negative); Opiate Screen Urine Negative (Negative); Oxycodone Screen Urine Negative (Negative); Phencyclidine Screen Urine Negative (Negative); Tricyclic Antidepressant Urine Negative (Negative)
[2024-11-19 13:07] LABS: TSH With Reflex to FT4* 0.324 uIU/mL (0.270-4.200)
--- NOTE | 2024-11-19 13:12 | ED.NURSE ---
Patient changed into scrubs, mother took patients clothing to vehicle. Patient did keep underwear, socks and crocs. Patient allowed to keep posession of cell phone at this time. Patient was pleasant and cooperative throughout RN interaction.
[2024-11-19 13:23] LABS: Ethanol* < 0.01 % (0.01-0.03)
[2024-11-19 15:37] VITALS: BP 140/83; PULSE 100; RESP 20; O2SAT 97
[2024-11-19 16:39] VITALS: BP 147/84; PULSE 100; RESP 20; TEMP 36.9; O2SAT 97
== END 2024-11-19 17:23 | disposition other institution (70) ==
PROVIDERS: Emergency Provider Emergency Medicine; PCP Physician Assistant Medical
DX: R45.851 Suicidal ideations (principal); F32.A Depression, unspecified
CPT/HCPCS: 36415; 80053; 80143; 80179; 80306; 81001; 81025; 82077; 84443; 85025; 87086; 87426; 99283; 99284; 99285; Q3014

== ENCOUNTER 2024-11-19 17:25 | Outpatient (CLI) | payer OTHER, SELFPAY ==
--- OUTSIDE RECORDS SUMMARY | 2024-11-21 00:42 | XMS_ITS | Clinical Summary ---
Author Organization [employer] [facility] Address [address] [place] [address] Care Team Providers Care Chief Growth Officer Name Role Phone Milagro Marroquin Primary Care Provider [phone] Allergies No known active allergies Medications ketoconazole [...] Department Care Team Description 11/19/2024 Nurse Triage [facility] [address] [place] [facility] [id number] Milagro Marroquin PA Suicidal Ideation 11/16/2024 Travel 10/22/2024 10:15 AM CDT Office Visit [facility] [address] [place] [address] Zeinab Pleitez, DEONDRE Follow Up; Medication Management (higher usage of THC) 10/22/2024 Travel 09/24/2024 10:15 AM CDT Office Visit [facility] [address] [place] [id number] Zeinab Pleitez, DEONDRE Follow Up; Medication Management 09/24/2024 Travel 08/27/2024 12:45 PM CDT Office Visit [facility] [address] [place] [id number] Zeinab Pleitez, DEONDRE Medication Management 08/27/2024 Travel [...] CDT Respiratory Rate 20 05/18/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 97% 08/13/2024 8:27 AM CDT Inhaled Oxygen Concentration - - Weight 134.3 kg (296 lb) 10/22/2024 10:11 AM CDT Height 176.2 cm (5' 9.37) 01/07/2024 7:59 AM CD T Body Mass Index 43.25 01/07/2024 7:59 AM CDT Plan of Treatment Health Maintenance Due Date Last Done Comments [...] AM CDT) HEMOGLOBIN A1C 5.5 <5.7 % [facility] Comment: For the purpose of screening for the presence of diabetes: <5.7% Consistent with the absence of diabetes 5.7-6.4% Consistent with increased risk for diabetes (prediabetes) > or =6.5% Consistent with diabetes This assay result is consistent with a decreased risk of diabetes. Currently, no consensus exists regarding use of hemoglobin A1c for diagnosis of diabetes in children. According to [place] Diabetes Association (ADA) guidelines, hemoglobin A1c <7.0% represents optimal control in non- diabetic patients. Different metrics may apply to specific patient populations. Standards of Medical Care in Diabetes(ADA). Blood BLOOD SPECIMEN / Unknown 09/24/2024 11:10 AM CDT 09/24/2024 11:10 AM CDT Zeinab Pleitez NP CHEMISTRY Final Resul t Performing Organization Address [facility] de Phone Number [employer] [facility] [address] [place] [phone], [facility] [address] [place] [address] * TSH WITH REFLEX (09/24/2024 11:10 AM CDT) TSH W/REFLEX TO FT4 0.52 mIU/L [facility] Comment: Reference Range > or = 20 Years 0.40-4.50 Ranges First trimester 0.26-2.66 Second trimester 0.55-2.73 Third trimester 0.43-2.91 Blood BLOOD SPECIMEN / Unknown 09/24/2024 11:10 AM CDT 09/24/2024 11:10 AM CDT Zeinab Pleitez NP CHEMISTRY Final Resul t Performing Organization Address [facility] de Phone Number [employer] [facility] [address] [place] [phone], [facility] [address] [place] [phone] * LIPID PANEL W REFLEX MEASURED LDL [...] of LDL-C. Avila GONZALEZ et al. MOON. 2013;310(19): 9245-0510 (http://education.AdExtent/faq/ZIA773) CHOL/HDLC RATIO 3.2 <5.0 (calc) [facility] NON HDL CHOLESTEROL 111 <130 mg/dL (calc) [facility] Comment: For patients with diabetes plus 1 major ASCVD risk factor, treating to a non-HDL-C goal of <100 mg/dL (LDL-C of <70 mg/dL) is considered a therapeutic option. Blood BLOOD SPECIMEN / Unknown 09/24/2024 11:10 AM CDT 09/24/2024 11:10 AM CDT Zeinab Pleitez NP CHEMISTRY Final Resul t [employer] [facility] [address] [place] [address], [facility] [address] [place] [address] * (ABNORMAL) BASIC METABOLIC PANEL (09/24/2024 11:10 AM CDT) [facility] GLUCOSE 100(H) 65 - 99 mg/dL [facility] Comment: Fasting reference interval For someone without known diabetes, a glucose value between 100 and 125 mg/dL is consistent with prediabetes and should be confirmed with a follow-up test. UREA NITROGEN (BUN) 12 7 - 25 mg/dL [facility] CREATININE 0.71 0.50 - 0.96 mg/dL [facility] EGFR 124 > OR = 60 mL/min/1. 73m2 [facility] BUN/CREATININE RATIO SEE NOTE: 6 - 22 (calc) [facility] Comment: Not Reported: BUN and Creatinine are within reference range. SODIUM 139 135 - 146 mmol/L [facility] POTASSIUM 4.1 3.5 - 5.3 mmol/L [facility] CHLORIDE 105 98 - 110 mmol/L [facility] CARBON DIOXIDE 27 20 - 32 mmol/L [facility] ELECTROLYTE BALANCE 7 7 - 17 mmol/L (calc) [facility] CALCIUM 9.4 8.6 - 10.2 mg/dL [facility] Blood BLOOD SPECIMEN / Unknown 09/24/2024 11:10 AM CDT 09/24/2024 11:10 AM CDT Zeinab Pleitez CARDIOPULMONARY SUPERVISOR CHEMISTRY Final Resul t Performing Organization Address [facility] de Phone Number [employer] [address] [phone], [facility] [address] [place] [phone] * ANTI HIV 1/2 [36766.0] (08/13/2024 8:59 AM CDT) HIV AG/AB, 4TH GEN NON-REACT PATTI NON-REACT PATTI [facility] Comment: HIV-1 antigen and HIV-1/HIV-2 antibodies were [...] purpose. For additional information please refer to http://education.ARTENCY.COM.Muecs/faq/ZMM476 (This link is being provided for informational/ educational purposes only.) The performance of this assay has not been clinically validated in patients less than 2 years old. Blood BLOOD SPECIMEN / Unknown 08/13/2024 8:59 AM CDT 08/13/2024 8:59 AM CDT Mckayla Lackey MD SEND OUTS Final Resul t Performing Organization Address [facility]/ZIP Co de Phone Number [employer] [place] [phone], [facility] [phone] * GC Chlamydia [[id number]] - Vaginal (08/13/2024 8:53 AM CDT) CHLAMYDIA PROBE Negative 5:23 PM CDT [facility] N GONORRHOEAE PROBE Negative 08/13/2024 5:23 PM CDT [facility] Other VAGINAL SWAB / Unknown Non-Blood / Unknown 08/13/2024 8:53 AM CDT 08/13/2024 9:06 AM CDT us Mckayla Lackey MD MICROBIOLOGY Final Resul t [facility] [address] [place] [address], [place] from Last 3 Months or Most Recently Relevant to Health Maintenance Insurance [facility] Care Teams Chief Growth Officer Relationship Specialty Start Date End Date Malecha, Milagro Piedad, PA [address] [place] [address] PCP - General Physician Rn Social Work 10/31/22
== END 2024-11-19 17:26 | disposition home or self-care (01) ==
LOC: AMB 11-20 14:11
PROVIDERS: PCP Physician Assistant Medical; Visit Provider Emergency Medicine
DX: R45.851 Suicidal ideations (principal)
CPT/HCPCS: A0425; A0428